=== PATIENT | female | born 1985 | race African-American/Black ===

== ENCOUNTER 2020-06-20 14:41 | Emergency (ER) | payer MEDICAID ==
[~2020-06-20] VITALS: Ht 172.7 cm; Wt 78.0 kg
[2020-06-20 15:01] VITALS: BP 125/81
[2020-06-20] MEDS ORDERED: FLUORESCEIN SODIUM 1MG/STRIP BOTHEYE ONE (15:15)
[2020-06-20] MEDS ORDERED: TETRACAINE 0.5% OPHTH DROPS 4ML BOTHEYE ONE (15:15)
[2020-06-20] MEDS ORDERED: [UNRECOGNIZED DRUG - OTHER] LEFTEYE ONE (15:15)
[2020-06-20] MEDS ORDERED: NAPHADR LEFTEYE (16:23)
== END 2020-06-20 16:41 | disposition home or self-care (01) ==
LOC: ER 14:41
DX: T26.52XA Corrosion of left eyelid and periocular area, initial encounter (principal); T20.44XA Corrosion of unspecified degree of nose (septum), initial encounter; T49.0X1A Poisoning by local antifungal, anti-infective and anti-inflammatory drugs, accidental (unintentional), initial encounter; Y93.89 Activity, other specified; Y92.9 Unspecified place or not applicable
CPT/HCPCS: 99283

== ENCOUNTER 2023-01-29 18:27 | Emergency (ER) | payer MEDICAID, OTHER ==
[~2023-01-29] VITALS: Ht 172.7 cm; Wt 100.0 kg
[~2023-01-29 18:27] MED LIST: NAPHADR LEFTEYE
[2023-01-29 18:42] VITALS: TEMP 97.9; O2SAT 100
[2023-01-29] MEDS ORDERED: IBUPROFEN 600MG TABLET PO ONE (20:15)
[2023-01-29] MEDS ORDERED: IBUP-2029 MT (21:36)
[2023-01-29 22:00] VITALS: BP 128/81; PULSE 95; RESP 18
[2023-01-29] MEDS: IBUPROFEN 600MG TABLET PO NR (22:00)
== END 2023-01-29 22:39 | disposition home or self-care (01) ==
LOC: ER 18:27
DX: S90.01XA Contusion of right ankle, initial encounter (principal); W18.42XS Slipping, tripping and stumbling without falling due to stepping into hole or opening, sequela; Y93.89 Activity, other specified; Y92.89 Other specified places as the place of occurrence of the external cause; Y99.8 Other external cause status
CPT/HCPCS: 73610; 29515; 99283; Z7610

== ENCOUNTER 2023-06-21 09:53 | Emergency (ER) | payer OTHER ==
[~2023-06-21] VITALS: Ht 170.2 cm; Wt 83.0 kg
[~2023-06-21 09:53] MED LIST changes: +IBUP-2029 MT
[2023-06-21 10:21] VITALS: O2SAT 100
[2023-06-21] MEDS: CYCLOBENZAPRINE 10MG TABLET PO SCH (11:09)
[2023-06-21] MEDS: KETOROLAC 15MG/ML VIAL IM ONE (11:09)
[2023-06-21 11:30] VITALS: BP 119/76; PULSE 75; RESP 16; TEMP 97.5
[2023-06-21] MEDS ORDERED: NAPR-1176 MT (11:43)
[2023-06-21] MEDS ORDERED: LIDO700A15 TP (11:43)
== END 2023-06-21 12:00 | disposition home or self-care (01) ==
LOC: ER 09:53
DX: M54.9 Dorsalgia, unspecified (principal); M54.2 Cervicalgia
CPT/HCPCS: 99283; 81025; 96372; J1885

== ENCOUNTER 2024-03-09 19:56 | Emergency (ER) | payer OTHER ==
[~2024-03-09] VITALS: Ht 170.2 cm; Wt 77.1 kg
[~2024-03-09 19:56] MED LIST changes: +LIDO700A15 TP; +NAPR-1176 MT
[2024-03-09 20:06] VITALS: TEMP 98; O2SAT 100
[2024-03-09 20:27] VITALS: O2SAT 100
[2024-03-09 23:58] VITALS: BP 120/79; PULSE 94; RESP 16
[2024-03-09] MEDS: KETOROLAC 30MG/ML VIAL IM NR (23:58)
[2024-03-10] MEDS ORDERED: ACET-2708 MT (00:03)
== END 2024-03-10 00:31 | disposition home or self-care (01) ==
LOC: ER 19:56
DX: M25.511 Pain in right shoulder (principal); Z79.1 Long term (current) use of non-steroidal anti-inflammatories (NSAID)
CPT/HCPCS: 99283; 81025; 96372; J1885; A4663

== ENCOUNTER 2024-07-22 17:32 | Emergency (ER) | payer MEDICAID, OTHER ==
[~2024-07-22] VITALS: Ht 170.2 cm; Wt 78.0 kg
[~2024-07-22 17:32] MED LIST changes: +ACET-2708 MT; +LIDO-53 TP; -LIDO700A15 TP
[2024-07-22 17:34] VITALS: O2SAT 100
[2024-07-22] MEDS ORDERED: TC1C15 TP (19:26)
[2024-07-22] MEDS: DEXAMETHASONE 4MG TABLET PO ONE (20:21)
[2024-07-22 20:25] VITALS: BP 151/91; PULSE 98; RESP 18; TEMP 36.7; O2SAT 99
== END 2024-07-22 20:27 | disposition home or self-care (01) ==
LOC: ER 17:32
DX: L30.9 Dermatitis, unspecified (principal); Z79.899 Other long term (current) drug therapy
CPT/HCPCS: 99283; J8540

== ENCOUNTER 2024-12-14 05:25 | Emergency (ER) | payer MEDICAID ==
[~2024-12-14] VITALS: Ht 172.7 cm; Wt 79.2 kg
[~2024-12-14 05:25] MED LIST changes: +IBUP-1455 MT; -IBUP-2029 MT; +TC1C15 TP
[2024-12-14 05:29] VITALS: TEMP 37; O2SAT 99
[2024-12-14] MEDS: IBUPROFEN 400MG TABLET PO ONE (06:34)
[2024-12-14] MEDS: OXYCODONE HCL/ACETAMINOPHEN 5/325MG TABLET PO ONE (06:35)
[2024-12-14] MEDS ORDERED: T3 PO (07:24)
[2024-12-14] MEDS ORDERED: IBUP-2028 PO (07:24)
[2024-12-14 07:44] VITALS: BP 112/76; PULSE 66; RESP 18; O2SAT 99
== END 2024-12-14 07:47 | disposition home or self-care (01) ==
LOC: ER 05:25
DX: M54.50 Low back pain, unspecified (principal)
CPT/HCPCS: 72100; 99283